=== PATIENT | female | born 1995 | race American Indian/Alaskan Native ===

== ENCOUNTER 2018-10-03 09:48 | Emergency (ER) | payer MEDICAID, OTHER ==
[2018-10-03 09:56] VITALS: BP 115/61
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
--- NOTE | 2018-10-03 14:12 | Cat Scan Report ---
PROCEDURE: CT HEAD/BRAIN WO CON TECHNIQUE: Spiral imaging of the brain was obtained without IV contrast administration. HISTORY: headache/lac COMPARISONS: None FINDINGS: Brain: Brain density appears normal. No evidence of intracranial hemorrhage. No parenchymal hemorr aimee, mass lesions or mass effect are seen. No abnormal extra-axial fluid collects or masses are see n. Ventricles: Ventricles are normal size and are midline. Bone Windows: No evidence of skull fracture. Paranasal sinuses: Minimal patchy mucosal disease seen. The ethmoid air cells. Visualized paranasal s inuses otherwise are clear.. Mastoid air cells: Clear. IMPRESSION: Negative unenhanced CT scan of the brain. This document is electronically signed by Wilmar Acuña MD., October 03 2018 02:10:09 PM ET
== END 2018-10-03 14:59 | disposition home or self-care (01) ==
LOC: ED 09:48
DX: O9A.212 Injury, poisoning and certain other consequences of external causes complicating pregnancy, second trimester (principal); S01.01XA Laceration without foreign body of scalp, initial encounter; Z3A.27 27 weeks gestation of pregnancy; W19.XXXA Unspecified fall, initial encounter; Y93.89 Activity, other specified; Y92.019 Unspecified place in single-family (private) house as the place of occurrence of the external cause; Y99.8 Other external cause status
CPT/HCPCS: 36415; 70450; 76815; 81001; 85025; 85384; 86850; 86900; 86901; 99283; J7120

== ENCOUNTER 2018-10-03 14:57 | Outpatient (CLI) | payer MEDICAID ==
[2018-10-03 15:22] VITALS: BP 97/54
[2018-10-03] MEDS ORDERED: LACTATED RINGERS 1,000 ML IV ONE (16:00)
[2018-10-03 16:37] LABS: Bacteria,Urine 3+ /HPF (Negative); Bilirubin,Urine NEG (Negative); Blood,Urine NEG (Negative); Color,Urine Yellow (Yellow); Mucus,Urine FEW /HPF; Protein,Urine <15 mg/dL mg/dL (Negative)
--- NOTE | 2018-10-03 17:42 | Ultrasound Report ---
PROCEDURE: US OB LIMITED TECHNIQUE: Limited OB ultrasound was performed. Spectral Doppler ultrasound evaluation of the left o vary was performed. HISTORY: abdominal pain; r/o placenta abruption COMPARISONS: None. FINDINGS: A single live intrauterine fetus is present in cephalic presentation with a heart rate of 152 bpm. Th e placenta is grade 1 and anterior in location. No evidence of placenta previa. No evidence of placen stephanie abruption. The left maternal ovary was visualized and demonstrates normal arterial blood flow measuring 2.2 x 1. 2 x 1.9 cm. A complex structure is seen in the left ovary measuring 1.2 x 1.0 x 1.1 cm likely represe nting a degenerating corpus luteal cyst. IMPRESSION: No evidence of placental abruption. This document is electronically signed by Elli Goss., October 03 2018 05:39:51 PM ET
[2018-10-03 18:11] LABS: Basophils % (Auto) 0.3 % (0.0-1.8); Eosinophils % (Auto) 0.3 % (0.0-4.3); Hematocrit 25.8 % (30.3-42.9); Hemoglobin 8.6 gm/dl (10.1-14.3); Lymphocytes % (Auto) 10.6 % (13.4-35.0); Mean Corpuscular HGB Conc 33 % (30-34); Mean Corpuscular Volume 90 fl (79-97); Monocytes % (Auto) 10.6 % (0.0-7.3); Platelet Count 173 K/mm3 (140-440); Red Blood Count 2.88 M/mm3 (3.65-5.03); Red Cell Distribution Width 12.9 % (13.2-15.2)
== END 2018-10-03 20:11 | disposition home or self-care (01) ==
LOC: TRG 14:57
PROVIDERS: ATTEND Obstetrics & Gynecology
DX: O47.02 False labor before 37 completed weeks of gestation, second trimester (principal); Z3A.26 26 weeks gestation of pregnancy
CPT/HCPCS: 36415; 76815; 81001; 85025; 85384; 86850; 86900; 86901; J7120

== ENCOUNTER 2019-08-03 13:24 | Emergency (ER) | payer MEDICAID, OTHER ==
--- NOTE | 2019-08-03 14:11 | Event Note ---
ED Screening Note Date of service: 08/03/19 Time: 14:11 ED Screening Note: 23 y o f presents with bartholin cyst This initial assessment/diagnostic orders/clinical plan/treatment(s) is/are subject to change based on patients health status, clinical progression and re- assessment by fellow clinical providers in the ED. Further treatment and workup at subsequent clinical providers discretion. Patient/guardian urged not to elope from the ED as their condition may be serious if not clinically assessed and managed. Initial orders include: acc eval ID
[2019-08-03] MEDS ORDERED: LIDOCAINE (2%) 20 MG/1 ML VIAL 20 ML MDV INFILTRATI ONE (17:17)
--- NOTE | 2019-08-03 18:28 | Emergency Department Report ---
Abscess Boil HPI - HPI Chief Complaint: Urogenital-Female Stated Complaint: BARTHOLIN CYST SWELLING Time Seen by Provider: 08/03/19 15:57 Duration: 1 Day Location: Other (right labia majora) Severity: Severe History: Yes Pain, No Fever, No Purulent Drainage, No Numbness, No Foreign Body, No Previous History, No Insect Bite HPI: This is a 23-year-old female nontoxic, well nourished in appearance, no acute signs of distress presents to the ED with c/o of redness and pain to right labia majora. Patient denies any pus or drainage. Patient denies any fever, chills, nausea, vomiting, chest pain, shortness of breath, headache or stiff neck. Patient denies any allergies or significant past medical history. Home Medications: Previous Rx's Medication Instructions Recorded Last Taken Type Acetaminophen 500 mg PO Q8H PRN #20 tablet 10/03/18 Unknown Rx Acetaminophen/Codeine [Tylenol 1 tab PO Q6H PRN #12 tab 08/03/19 Unknown Rx /Codeine # 3 tab] Sulfamethoxazole/Trimethoprim 1 each PO BID #14 tablet 08/03/19 Unknown Rx [Bactrim DS TAB] Allergies/Adverse Reactions: Allergies Allergy/AdvReac Type Severity Reaction Status Date / Time No Known Allergies Allergy Unverified 10/03/18 09:54 ED Review of Systems ROS: Stated complaint: BARTHOLIN CYST SWELLING Other details as noted in HPI Constitutional: denies: chills, fever Eyes: denies: eye pain, eye discharge, vision change ENT: denies: ear pain, throat pain Respiratory: denies: cough, shortness of breath, wheezing Cardiovascular: denies: chest pain, palpitations Endocrine: no symptoms reported Gastrointestinal: denies: abdominal pain, nausea, diarrhea Genitourinary: denies: urgency, dysuria, discharge Musculoskeletal: denies: back pain, joint swelling, arthralgia Skin: denies: rash, lesions Neurological: denies: headache, weakness, paresthesias Psychiatric: denies: anxiety, depression Hematological/Lymphatic: denies: easy bleeding, easy bruising ED Past Medical Hx - Past Medical History Previous Medical History?: Yes - Surgical History Past Surgical History?: Yes - Social History Smoking Status: Never Smoker Substance Use Type: None - Medications Home Medications: Home Medications Medication Instructions Recorded Confirmed Last Taken Type Acetaminophen 500 mg PO Q8H PRN #20 tablet 10/03/18 Unknown Rx Acetaminophen/Codeine [Tylenol 1 tab PO Q6H PRN #12 tab 08/03/19 Unknown Rx /Codeine # 3 tab] Sulfamethoxazole/Trimethoprim 1 each PO BID #14 tablet 08/03/19 Unknown Rx [Bactrim DS TAB] ED Abscess Boil Physical Exam - Exam General: Vital signs noted. No distress. Alert and acting appropriately. Size: 3 cm Exam: Yes Tenderness, Yes Fluctuance, Yes Normal Neurologic Exam, Yes Normal Circulation, No Surrounding Cellulites/Erythema, No Lymphangitis, No C repitation, No Heart Murmur I & D Note - I & D Note I & D Note: Under sterile field, I used Betadine to cleanse the area. I then used 2% lidocaine plain with 25-gauge 5/8 needle to inject area for anesthetic purposes. Total volume injected 6 mL. I then used an 11 blade to make a 1 cm incision. About 2 mL's of purulent drainage has been noted. I then used a hemostat to break the abscess formation. I then used sterile 0.9% normal saline flush to flush the wound with total volume of 40 mL used. I then put a 1 inch iodoform packing to the incision. A sterile 4 x 4 with tape has been applied as dressing. Bleeding is under control. Patient tolerated the procedure well with no signs of distress noted. Henrique Morrison RN present during the exam and whole procedure. ED Course Vital Signs 08/03/19 13:45 Temperature 98.9 F Pulse Rate 110 H Respiratory 16 Rate Blood Pressure 128/75 O2 Sat by Pulse 98 Oximetry - Reevaluation(s) Reevaluation #1: 08/03/19 18:24 Patient is speaking in full sentences with no signs of distress noted. Critical care attestation.: If time is entered above; I have spent that time in minutes in the direct care of this critically ill patient, excluding procedure time. ED Medical Decision Making - Medical Decision Making This is a 23-year-old female that presents with right labia majora abscess. Patient is stable and was examined by me. This is incision and drainage and has been performed and patient tolerated well. A sterile dressing has been applied. Patient was educated on proper wound care. Patient is discharged with Bactrim and Tylenol with codeine and was instructed not to operate any machinery while taking Tylenol with codeine due to drowsiness. Patient was instructed to return in 2 days for packing removal. Patient was instructed to refer to Follow-up with a primary care doctor in 3-5 days or if symptoms worsen and continue return to emergency room as soon as possible. At time of discharge, the patient does not seem toxic or ill in appearance. No acute signs of distress noted. Patient agrees to discharge treatment plan of care. No further questions noted by the patient. ED Disposition Clinical Impression: Bartholin's gland abscess, Encounter for incision and drainage procedure Disposition: TO HOME OR SELFCARE Is pt being admited?: No Does the pt Need Aspirin: No Condition: Stable Instructions: Abscess (ED), Incision and Drainage (ED), Acetaminophen/Codeine (By mouth) Additional Instructions: Follow-up with a primary care doctor in 3-5 days or if symptoms worsen and continue return to emergency room as soon as possible. Do not operate any machinery while taking Tylenol with codeine as this may cause drowsiness. Return in 2 days for packing removal. Prescriptions: Sulfamethoxazole/Trimethoprim [Bactrim DS TAB] 1 each PO BID #14 tablet Acetaminophen/Codeine [Tylenol /Codeine # 3 tab] 1 tab PO Q6H PRN #12 tab PRN Reason: Pain , Severe (7-10) Referrals: PRIMARY MD GILDA [Primary Care Provider] - 3-5 Days MIGUEL RODRIGUES MD [Staff Physician] - 3-5 Days [facility] [Outside] - 3-5 Days Forms: Work/School Release Form(ED)
[2019-08-03 18:38] VITALS: BP 124/71
== END 2019-08-03 18:37 | disposition home or self-care (01) ==
LOC: ED 13:24
DX: N75.1 Abscess of Bartholin's gland (principal); Z48.817 Encounter for surgical aftercare following surgery on the skin and subcutaneous tissue; Z79.899 Other long term (current) drug therapy

== ENCOUNTER 2020-10-08 16:20 | Emergency (ER) | payer MEDICAID ==
[2020-10-08] MEDS ORDERED: ACETAMINOPHEN 325 MG TAB PO ONE (17:42)
[2020-10-08 17:43] VITALS: BP 112/64
[2020-10-08] MEDS ORDERED: LIDOCAINE (1%) 10 MG/1 ML VIAL 20 ML MDV INFILTRATI ONE (18:27)
[2020-10-08 19:22] LABS: Basophils % (Auto) 0.3 % (0.0-1.8); Eosinophils % (Auto) 0.2 % (0.0-4.3); Hematocrit 33.2 % (30.3-42.9); Hemoglobin 10.8 gm/dl (10.1-14.3); Lymphocytes # (Auto) 0.7 K/mm3 (1.2-5.4); Lymphocytes % (Auto) 19.3 % (13.4-35.0); Mean Corpuscular HGB Conc 32 % (30-34); Mean Corpuscular Volume 83 fl (79-97); Monocytes # (Auto) 0.4 K/mm3 (0.0-0.8); Monocytes % (Auto) 10.8 % (0.0-7.3); Platelet Count 174 K/mm3 (140-440); Red Blood Count 4.01 M/mm3 (3.65-5.03); Red Cell Distribution Width 16.5 % (13.2-15.2)
[2020-10-08 19:36] LABS: Alanine Aminotransferase 11 units/L (7-56); Albumin 4.4 g/dL (3.9-5); Blood Urea Nitrogen 9 mg/dL (7-17); Calcium 8.5 mg/dL (8.4-10.2); Hemolysis Index 1
[2020-10-08 19:44] LABS: BUN/Creatinine Ratio 13
[2020-10-08] MEDS ORDERED: CLINDAMYCIN 150 MG CAP PO ONE (20:56)
--- NOTE | 2020-10-08 20:56 | Emergency Department Report ---
- General Chief complaint: Skin/Abscess/Foreign Body Stated complaint: ABCESS/FEVER Time Seen by Provider: 10/08/20 18:11 Source: patient Mode of arrival: Ambulatory Limitations: No Limitations - History of Present Illness Initial comments: 25-year-old female with no significant past medical history presents to the ER today with complaints of a Bartholin's abscess to right side of vaginal area. Patient states that it started about 2 days ago and has been getting worse. She states that she is also been having intermittent subjective fever, generalized fatigue and decreased appetite. She states that she has had similar abscesses in the past which required I&D. She denies any history of diabetes, MRSA or any other immunocompromise disease. MD complaint: abscess/boil -: Gradual, days(s) (2) - Related Data Previous Rx's Medication Instructions Recorded Last Taken Type Acetaminophen [Acetaminophen 8 650 mg PO Q8HR PRN #20 tablet.er 10/08/20 Unknown Rx Hour] Clindamycin [Clindamycin CAP] 300 mg PO Q6H #40 cap 10/08/20 Unknown Rx Allergies Allergy/AdvReac Type Severity Reaction Status Date / Time No Known Allergies Allergy Verified 10/08/20 17:38 Abscess Boil HPI - HPI Chief Complaint: Skin/Abscess/Foreign Body Stated Complaint: ABCESS/FEVER Time Seen by Provider: 10/08/20 18:11 Home Medications: Previous Rx's Medication Instructions Recorded Last Taken Type Acetaminophen [Acetaminophen 8 650 mg PO Q8HR PRN #20 tablet.er 10/08/20 Unknown Rx Hour] Clindamycin [Clindamycin CAP] 300 mg PO Q6H #40 cap 10/08/20 Unknown Rx Allergies/Adverse Reactions: Allergies Allergy/AdvReac Type Severity Reaction Status Date / Time No Known Allergies Allergy Verified 10/08/20 17:38 ED Review of Systems ROS: Stated complaint: ABCESS/FEVER Other details as noted in HPI Comment: All other systems reviewed and negative Constitutional: denies: chills, fever Eyes: denies: eye pain, eye discharge, vision change ENT: denies: ear pain, throat pain Respiratory: denies: cough, shortness of breath, wheezing Cardiovascular: denies: chest pain, palpitations Endocrine: no symptoms reported Gastrointestinal: denies: abdominal pain, nausea, vomiting, diarrhea, constipation, hematemesis, melena, hematochezia Genitourinary: denies: urgency, dysuria, discharge Skin: other (abscess- vaginal ) Neurological: denies: headache, weakness, paresthesias Psychiatric: denies: anxiety, depression, auditory hallucinations, visual hallucinations, homicidal thoughts, suicidal thoughts Hematological/Lymphatic: denies: easy bleeding ED Past Medical Hx - Past Medical History Hx Hypertension: No Hx Diabetes: No Hx Deep Vein Thrombosis: No Hx Renal Disease: No Hx Sickle Cell Disease: No Hx Seizures: No Hx Asthma: No Hx HIV: No - Surgical History Past Surgical History?: No - Social History Smoking Status: Never Smoker Substance Use Type: None - Medications Home Medications: Home Medications Medication Instructions Recorded Confirmed Last Taken Type Acetaminophen [Acetaminophen 8 650 mg PO Q8HR PRN #20 tablet.er 10/08/20 Unknown Rx Hour] Clindamycin [Clindamycin CAP] 300 mg PO Q6H #40 cap 10/08/20 Unknown Rx ED Physical Exam - General Limitations: No Limitations General appearance: alert, in no apparent distress - Head Head exam: Present: atraumatic, normocephalic, normal inspection - Eye Eye exam: Present: normal appearance, PERRL, EOMI Pupils: Present: normal accommodation - Neck Neck exam: Present: normal inspection, full ROM. Absent: meningismus - Respiratory Respiratory exam: Present: normal lung sounds bilaterally. Absent: respiratory distress - Cardiovascular Cardiovascular Exam: Present: regular rate, normal rhythm, normal heart sounds - GI/Abdominal GI/Abdominal exam: Present: soft. Absent: distended, tenderness, guarding, rebound - External exam: Present: other (Bartholin's abscess noted to right vaginal area without any associated significant cellulitis no drainage noted it is severely tender to palpate) - Neurological Exam Neurological exam: Present: alert, oriented X3, CN II-XII intact, normal gait - Psychiatric Psychiatric exam: Present: normal affect, normal mood - Skin Skin exam: Present: intact ED Course Vital Signs 10/08/20 17:42 Temperature 101.0 F H Pulse Rate 81 Respiratory 20 Rate Blood Pressure 112/64 O2 Sat by Pulse 98 Oximetry - I & D Right Vagina Type of Procedure: Simple Site: bartholin gland (right) Blade Size: 11 I & D Procedure: betadine prep, no gauze wick placed (Use words catheter) Progress: Used lidocaine 2% Anesthesia achieved. Patient tolerated procedure well without any complication. ED Medical Decision Making - Lab Data Result diagrams: 10/08/20 18:42 10/08/20 18:42 - Medical Decision Making 25-year-old female with no significant past medical history presents to the ER today with complaints of a Bartholin's abscess to right side of vaginal area. Patient states that it started about 2 days ago and has been getting worse. She states that she is also been having intermittent subjective fever, generalized fatigue and decreased appetite. She states that she has had similar abscesses in the past which required I&D. She denies any history of diabetes, MRSA or any other immunocompromise disease. 1004pm: Bartholins abscess drained by me, see procedure note for details. Patient CBC/CMP wnl. Her serum HCG was positive and Quant HCG was 11.08. Patient was not aware she was . She had a nl MC in august. 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 She denies any abd or pelvic pain. She is Rh positive. Since patient has no abd/pelvic pain and her Quant is only 11.08, I do not see in inidication for doingv an US at this time. Discussed lab results with patient. Recommend f/u with OBGYN in 2-3 days. Discussed wound care with patient. She was febrile on arrival but repeat VS show improved temp (98.4) after meds. Her remaining VS stable. Overall patient is well appearing, not toxic, no ill appearing and no in distress at this time. Patient was stable at time of d/c. Critical care attestation.: If time is entered above; I have spent that time in minutes in the direct care of this critically ill patient, excluding procedure time. ED Disposition Clinical Impression: Bartholin's gland abscess, state, incidental, Threatened miscarriage in early Disposition: DC-01 TO HOME OR SELFCARE Is pt being admited?: No Does the pt Need Aspirin: No Condition: Stable Instructions: Threatened Miscarriage, Skin Abscess, [id number], Bartholin's Cyst, [id number] Additional Instructions: Keep area clean with soap and water. You can follow-up with [facility] or return in 2 days to have the vital signs catheter removed. You will also need to follow- up with your [facility] for further follow-up on your . I recommend repeat quant HCG in about 2 to 3 days. Take the clindamycin as prescribed. Take the Tylenol as needed for pain. Return to the ER if your symptoms changes or worsens in any way. Prescriptions: Acetaminophen [Acetaminophen 8 Hour] 650 mg PO Q8HR PRN #20 tablet.er PRN Reason: Pain Clindamycin [Clindamycin CAP] 300 mg PO Q6H #40 cap Referrals: ANJEL DICKSON [Other] - 2-3 Days [facility] [Provider Group] - 2-3 Days [facility] [Provider Group] - 2-3 Days Forms: Work/School Release Form(ED) Time of Disposition: 22:00
[2020-10-08] MEDS ORDERED: MORPHINE 2 MG/1 ML INJ IM ONE (21:01)
[2020-10-08] MEDS ORDERED: ONDANSETRON 4 MG ODT TAB PO ONE (21:01)
== END 2020-10-08 22:23 | disposition home or self-care (01) ==
LOC: ED 16:20
DX: O23.591 Infection of other part of genital tract in pregnancy, first trimester (principal); O20.9 Hemorrhage in early pregnancy, unspecified; Z79.899 Other long term (current) drug therapy; Z3A.01 Less than 8 weeks gestation of pregnancy
CPT/HCPCS: 36415; 56420; 80053; 84702; 84703; 85025; 85461; 86850; 86900; 86901; 96372; 99283; J2270; Q0162

== ENCOUNTER 2020-10-11 13:14 | Emergency (ER) | payer MEDICAID ==
[2020-10-11 14:11] VITALS: BP 103/71
--- NOTE | 2020-10-11 14:33 | Emergency Department Report ---
ED General Adult HPI - General Chief complaint: Urogenital-Female Stated complaint: REMOVAL OF PACKING/RETEST FOR MISCARRIAGE Time Seen by Provider: 10/11/20 14:30 Source: patient Mode of arrival: Ambulatory Limitations: No Limitations - History of Present Illness Initial comments: 25-year-old female presents to the ER today for removal of her word's catheter after she had a Bartholin abscess drained on October 08. She is also here for repeat quant hCG. Patient states that since the drainage of a Bartholin cyst, she did have some soreness but no significant pain like she did when he first started. She has been compliant with taking antibiotics. She is not sure if there is any drainage as she is still having some vaginal bleeding. She denies any fever since she was last seen. Patient was found to be on her October 08 visit. It was a incidental finding as patient was not aware she was . Her quant at the time measured 11.08. Patient was instructed to follow-up with [facility] to continue monitoring her quant but she has not been able to find OB. Patient states that she still having vaginal bleeding, not any heavier than when she was seen 3 days ago. She denies any pelvic pain or abdominal pain at this time. She denies any abnormal vaginal discharge. Complaint: Word's catheter removal/ Recheck HCG -: days(s) (3) - Related Data Previous Rx's Medication Instructions Recorded Last Taken Type Acetaminophen [Acetaminophen 8 650 mg PO Q8HR PRN #20 tablet.er 10/08/20 Unknown Rx Hour] Clindamycin [Clindamycin CAP] 300 mg PO Q6H #40 cap 10/08/20 Unknown Rx Allergies Allergy/AdvReac Type Severity Reaction Status Date / Time No Known Allergies Allergy Verified 10/08/20 17:38 ED Review of Systems ROS: Stated complaint: REMOVAL OF PACKING/RETEST FOR MISCARRIAGE Other details as noted in HPI Comment: All other systems reviewed and negative Respiratory: denies: cough, shortness of breath, wheezing Cardiovascular: denies: chest pain, palpitations Gastrointestinal: denies: abdominal pain, nausea, vomiting, diarrhea, constipation, hematemesis, melena, hematochezia Genitourinary: other (Abnormal vaginal bleeding). denies: urgency, dysuria, frequency, hematuria, discharge Musculoskeletal: denies: back pain, joint swelling, arthralgia Skin: other (Abscess) Neurological: denies: headache, weakness, paresthesias, confusion, abnormal gait, vertigo Psychiatric: denies: anxiety, depression Hematological/Lymphatic: denies: easy bleeding, easy bruising ED Past Medical Hx - Past Medical History Hx Hypertension: No Hx Diabetes: No Hx Deep Vein Thrombosis: No Hx Renal Disease: No Hx Sickle Cell Disease: No Hx Seizures: No Hx Asthma: No Hx HIV: No - Social History Smoking Status: Never Smoker Substance Use Type: None - Medications Home Medications: Home Medications Medication Instructions Recorded Confirmed Last Taken Type Acetaminophen [Acetaminophen 8 650 mg PO Q8HR PRN #20 tablet.er 10/08/20 Unknown Rx Hour] Clindamycin [Clindamycin CAP] 300 mg PO Q6H #40 cap 10/08/20 Unknown Rx ED Physical Exam - General Limitations: No Limitations General appearance: alert, in no apparent distress - Head Head exam: Present: atraumatic, normocephalic, normal inspection - Respiratory Respiratory exam: Present: normal lung sounds bilaterally. Absent: respiratory distress - Cardiovascular Cardiovascular Exam: Present: regular rate, normal rhythm, normal heart sounds - GI/Abdominal GI/Abdominal exam: Present: soft. Absent: distended, tenderness - External exam: Present: other (Words catheter noted right vaginal area; it was removed by me without any complication. no further pus drainage noted. Abscess overall healling ) - Neurological Exam Neurological exam: Present: alert, oriented X3, CN II-XII intact, normal gait - Psychiatric Psychiatric exam: Present: normal affect, normal mood - Skin Skin exam: Present: intact ED Course Vital Signs 10/11/20 14:10 Temperature 98.4 F Pulse Rate 59 L Respiratory 16 Rate Blood Pressure 103/71 O2 Sat by Pulse 100 Oximetry ED Medical Decision Making - Medical Decision Making Words catheter removed successfully without any complication. Bartholin's abscess healing well. Patient instructed to continue taking and finishing antibiotics. Quant hCG shows decreased from 11.08 to 3.21 which indicates that patient is likely having or has had a miscarriage. Discussed results with patient. Recommend that she still follows up with [facility] next week. Patient expressed understanding of instructions and agree with plan. Patient overall well-appearing, not toxic and not in any acute distress. Vital signs are stable. Patient was stable at time of discharge Critical care attestation.: If time is entered above; I have spent that time in minutes in the direct care of this critically ill patient, excluding procedure time. ED Disposition Clinical Impression: Wound check, abscess, Miscarriage Disposition: DC- TO HOME OR SELFCARE Is pt being admited?: No Does the pt Need Aspirin: No Condition: Stable Instructions: Miscarriage, [id number], Wound Care, Adult Additional Instructions: Keep the area clean daily with soap and water. Continue and complete all antibiotics. Based on the fact that your quantitative hCG is dropping, appears that you likely having a miscarriage. Follow-up with your [facility] next week. Return to the ER if anything changes or worsens in any way. Referrals: [facility] [Provider Group] - 3-5 Days Forms: Work/School Release Form(ED) Time of Disposition: 16:22
== END 2020-10-11 17:30 | disposition home or self-care (01) ==
LOC: ED 13:14
DX: O03.9 Complete or unspecified spontaneous abortion without complication (principal); Z48.01 Encounter for change or removal of surgical wound dressing; Z79.2 Long term (current) use of antibiotics; Z79.899 Other long term (current) drug therapy
CPT/HCPCS: 36415; 84702

== ENCOUNTER 2020-11-10 17:08 | Emergency (ER) | payer MEDICAID ==
[2020-11-10] MEDS ORDERED: HYDROcodone/ACETAMINOPHEN 5-325 MG TAB PO ONE (20:25)
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
[2020-11-10] MEDS ORDERED: LIDOCAINE (1%) 10 MG/1 ML VIAL 20 ML MDV INFILTRATI ONE (20:50)
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
[2020-11-10 22:33] VITALS: BP 116/83
== END 2020-11-10 22:30 | disposition home or self-care (01) ==
LOC: ED 17:08
DX: S51.811A Laceration without foreign body of right forearm, initial encounter (principal); Z79.1 Long term (current) use of non-steroidal anti-inflammatories (NSAID); Z79.2 Long term (current) use of antibiotics; Z79.899 Other long term (current) drug therapy; W26.0XXA Contact with knife, initial encounter; Y93.89 Activity, other specified; Y92.89 Other specified places as the place of occurrence of the external cause; Y99.8 Other external cause status

== ENCOUNTER 2020-12-21 13:39 | Emergency (ER) | payer MEDICAID ==
--- NOTE | 2020-12-21 15:06 | Event Note ---
ED Screening Note Date of service: 12/21/20 Time: 15:04 ED Screening Note: Patient is a A1 25-year-old -[place] female with no past medical history under who suspect that she may be presents to the ED with complaint of acute onset persistent intermittent diffuse lower abdominal pain and vaginal bleeding for the last 2 days. Patient states that the bleeding initially was mild but became heavier in the last 8 hours. Patient states that she had positive home test 1 week ago and is scared that she may be having a miscarriage again having had 1 about 2 months ago. Patient denies dysuria, urinary frequency and urgency, chest pain, shortness of breath, diarrhea, vaginal discharge or low back pain, fever and chills. This initial assessment/diagnostic orders/clinical plan/treatment(s) is/are subject to change based on patients health status, clinical progression and re- assessment by fellow clinical providers in the ED. Further treatment and workup at subsequent clinical providers discretion. Patient/guardian urged not to elope from the ED as their condition may be serious if not clinically assessed and managed. Initial orders include: CBC, CMP, hCG quant, UA
[2020-12-21 15:32] LABS: Basophils % (Auto) 0.4 % (0.0-1.8); Eosinophils # (Auto) 0.1 K/mm3 (0.0-0.4); Eosinophils % (Auto) 2.1 % (0.0-4.3); Hematocrit 33.3 % (30.3-42.9); Hemoglobin 10.6 gm/dl (10.1-14.3); Lymphocytes # (Auto) 1.5 K/mm3 (1.2-5.4); Lymphocytes % (Auto) 29.8 % (13.4-35.0); Mean Corpuscular HGB Conc 32 % (30-34); Mean Corpuscular Volume 85 fl (79-97); Monocytes # (Auto) 0.5 K/mm3 (0.0-0.8); Monocytes % (Auto) 10.7 % (0.0-7.3); Platelet Count 213 K/mm3 (140-440); Red Blood Count 3.94 M/mm3 (3.65-5.03); Red Cell Distribution Width 16.1 % (13.2-15.2)
--- NOTE | 2020-12-21 15:48 | Emergency Department Report ---
ED Female HPI - General Chief complaint: Vaginal Bleeding Stated complaint: VAG BLEEDING Time Seen by Provider: 12/21/20 15:10 Source: patient Mode of arrival: Ambulatory Limitations: No Limitations - History of Present Illness Initial comments: 5-year-old female presents to the ER today wanting to know whether she is having a miscarriage or if the bleeding that she is having is related to her menstrual cycle. Patient states that she took a home test last week because she was feeling nauseous and it was positive. She states that she was scheduled to start her menstrual cycle yesterday which she did. And the bleeding that she started yesterday was typical of her menstrual cycle. She has not taken another test since taking the first 1. She reports mild abdominal cramping which is typical during her first couple days of her menstrual cycle. She is not currently on any control. She denies any abnormal vaginal discharge. She denies any nausea, vomiting, diarrhea, fever or chills. She states that she had a miscarriage back in October 2020. She is AB 1 Complaint: vaginal bleeding -: days(s) (1) - Related Data Previous Rx's Medication Instructions Recorded Last Taken Type Acetaminophen [Acetaminophen 8 650 mg PO Q8HR PRN #20 tablet.er 10/08/20 Unknown Rx Hour] Clindamycin [Clindamycin CAP] 300 mg PO Q6H #40 cap 10/08/20 Unknown Rx Ibuprofen [Motrin 600 MG tab] 600 mg PO Q8H PRN #14 tablet 11/10/20 Unknown Rx Neomycin/Bacitracin/Polymyxinb 1 applicatio TP BID #1 oint...g. 11/10/20 Unknown Rx [Triple Antibiotic Ointment] Allergies Allergy/AdvReac Type Severity Reaction Status Date / Time No Known Allergies Allergy Verified 12/21/20 15:10 ED Review of Systems ROS: Stated complaint: VAG BLEEDING Other details as noted in HPI Comment: All other systems reviewed and negative Constitutional: denies: chills, fever Eyes: denies: eye pain, eye discharge, vision change ENT: denies: ear pain, throat pain Respiratory: denies: cough, shortness of breath, SOB with exertion, SOB at rest, wheezing Cardiovascular: denies: chest pain, palpitations Endocrine: no symptoms reported Gastrointestinal: abdominal pain, nausea. denies: vomiting, diarrhea, constipation, hematemesis, melena, hematochezia Genitourinary: abnormal menses. denies: urgency, dysuria, frequency, hematuria, discharge, dyspareunia Musculoskeletal: denies: back pain, joint swelling, arthralgia Skin: denies: rash, lesions Neurological: denies: headache, weakness, paresthesias Psychiatric: denies: anxiety, depression, auditory hallucinations, visual hallucinations, homicidal thoughts, suicidal thoughts Hematological/Lymphatic: denies: easy bleeding, easy bruising ED Past Medical Hx - Past Medical History Previous Medical History?: No Hx Hypertension: No Hx Diabetes: No Hx Deep Vein Thrombosis: No Hx Renal Disease: No Hx Sickle Cell Disease: No Hx Seizures: No Hx Asthma: No Hx HIV: No - Surgical History Past Surgical History?: No - Social History Smoking Status: Never Smoker Substance Use Type: Alcohol - Medications Home Medications: Home Medications Medication Instructions Recorded Confirmed Last Taken Type Acetaminophen [Acetaminophen 8 650 mg PO Q8HR PRN #20 tablet.er 10/08/20 Unknown Rx Hour] Clindamycin [Clindamycin CAP] 300 mg PO Q6H #40 cap 10/08/20 Unknown Rx Ibuprofen [Motrin 600 MG tab] 600 mg PO Q8H PRN #14 tablet 11/10/20 Unknown Rx Neomycin/Bacitracin/Polymyxinb 1 applicatio TP BID #1 oint...g. 11/10/20 Unknown Rx [Triple Antibiotic Ointment] ED Physical Exam - General Limitations: No Limitations General appearance: alert, in no apparent distress - Head Head exam: Present: atraumatic, normocephalic, normal inspection - Eye Eye exam: Present: normal appearance, PERRL, EOMI Pupils: Present: normal accommodation - ENT ENT exam: Present: normal exam, mucous membranes moist - Neck Neck exam: Present: normal inspection, full ROM - Respiratory Respiratory exam: Present: normal lung sounds bilaterally. Absent: respiratory distress, wheezes, rales, rhonchi - Cardiovascular Cardiovascular Exam: Present: regular rate, normal rhythm, normal heart sounds - GI/Abdominal GI/Abdominal exam: Present: soft. Absent: distended, tenderness, guarding, rebound - Neurological Exam Neurological exam: Present: alert, oriented X3, CN II-XII intact, normal gait - Psychiatric Psychiatric exam: Present: normal affect, normal mood - Skin Skin exam: Present: intact ED Course Vital Signs 12/21/20 12/21/20 14:48 15:11 Temperature 99.1 F Pulse Rate 61 Respiratory 16 20 Rate Blood Pressure 111/70 O2 Sat by Pulse 100 Oximetry ED Medical Decision Making - Lab Data Result diagrams: 12/21/20 15:14 12/21/20 15:14 - Medical Decision Making Lab results reviewed --CBC and CMP unremarkable. Quant hCG is positive at 588. OB transvaginal ultrasound ordered. 1815: Ultrasound still has not been done and wants to leave. Nurse states that she call ultrasound area several times without being able to get a hold of anyone. I tried calling myself but without success. ED RhoGam also pending. I apologized to patient about the weight but informed her that if she needs to leave she will have to sign out AMA. Patient agreed to sign out AMA. AMA note: [Alexis Booker] Has decided to leave our facility AGAINST MEDICAL ADVICE. I have assessed the patient's ability to make informed decision and it is my opinion at this time that the patient has the medical decision capacity to comprehend information regarding current medical condition and appreciates the impact of the disease or condition and the consequences of various options for treatment including foregoing treatment. The patient possesses the ability to evaluate all treatment options, compared to risk and benefits of each option, communicate choice in a consistent manner over time and is able to make rational choices. I have explained to the patient further testing, treatment and evaluation I would like to perform during the current emergency department visit as well as any possible alternatives that could be accomplished in a timely manner. I have outlined the possible risk of foregoing any or all of these interventions and the patient understands and acknowledges that the decision to leave may result in undesirable consequences such as , permanent disability and/or loss of current lifestyle. Even though leaving AMA is not ideal, I have instructed the patient to follow any discharge instructions given take any medications prescribed and resume care as soon as possible with another provider. Additionally, we clearly stated that the patient is welcome to return at any time to continue at our facility. Critical care attestation.: If time is entered above; I have spent that time in minutes in the direct care of this critically ill patient, excluding procedure time. ED Disposition Clinical Impression: Threatened miscarriage Disposition: DC-01 TO HOME OR SELFCARE Is pt being admited?: No Does the pt Need Aspirin: No Condition: Stable Instructions: Threatened Miscarriage Referrals: [facility] [Provider Group] - 2-3 Days Forms: AMA Form Time of Disposition: 18:13
[2020-12-21 15:49] LABS: Alanine Aminotransferase 9 units/L (7-56); Albumin 4.7 g/dL (3.9-5); Blood Urea Nitrogen 13 mg/dL (7-17); Hemolysis Index 4
[2020-12-21 15:50] VITALS: BP 111/70
[2020-12-21 15:53] LABS: BUN/Creatinine Ratio 22
[2020-12-21 16:36] LABS: Bacteria,Urine 1+ /HPF (Negative); Bilirubin,Urine NEG (Negative); Blood,Urine LG (Negative); Color,Urine Yellow (Yellow); Mucus,Urine FEW /HPF
[2020-12-21 16:38] LABS: RBC,Urine > 182.0 /HPF (0.0-6.0)
== END 2020-12-21 18:16 | disposition home or self-care (01) ==
LOC: ED 13:39
DX: O20.0 Threatened abortion (principal); Z79.899 Other long term (current) drug therapy; Z3A.01 Less than 8 weeks gestation of pregnancy
CPT/HCPCS: 36415; 80053; 81001; 84702; 85025; 86900; 86901; 87086

== ENCOUNTER 2022-04-01 10:07 | Emergency (ER) | payer MEDICAID ==
[2022-04-01 11:25] VITALS: BP 114/71
[2022-04-01] MEDS ORDERED: oxyCODONE /ACETAMINOPHEN 5-325MG TAB PO ONE (16:17)
[2022-04-01] MEDS ORDERED: LIDOCAINE-MPF (1%) 10 MG/1 ML VIAL 5 ML INFILTRATI ONE (16:17)
--- NOTE | 2022-04-01 16:22 | Emergency Department Report ---
Abscess Boil HPI - HPI Chief Complaint: Skin/Abscess/Foreign Body Stated Complaint: BARTHOLIN CYST/RT SIDE Time Seen by Provider: 04/01/22 16:17 Duration: 2 Days Location: Other Severity: Mild History: Yes Pain, Yes Previous History, No Fever, No Purulent Drainage, No Numbness, No Foreign Body, No Insect Bite HPI: 26 yo comes to ER with a/c Barthol. cyst of right labial area. She states it keeps coming back. She has had I/D x 2 and had a wick placed "but it falls out.". She has not seen obgyn. no fever. no chills. no drainage. no back pain. no abnormal vag dc. ambulatory and non ill on arrival to ER. No life threat identified Home Medications: Previous Rx's Medication Instructions Recorded Last Taken Type Sulfamethoxazole/Trimethoprim 1 each PO BID #14 04/01/22 Unknown Rx [Bactrim DS TAB] Allergies/Adverse Reactions: Allergies Allergy/AdvReac Type Severity Reaction Status Date / Time No Known Allergies Allergy Verified 04/01/22 10:24 ED Review of Systems ROS: Stated complaint: BARTHOLIN CYST/RT SIDE Other details as noted in HPI Comment: All other systems reviewed and negative ED Past Medical Hx - Past Medical History Previous Medical History?: No Hx Hypertension: No Hx Diabetes: No Hx Deep Vein Thrombosis: No Hx Renal Disease: No Hx Sickle Cell Disease: No Hx Seizures: No Hx Asthma: No Hx HIV: No - Surgical History Past Surgical History?: Yes Additional Surgical History: Bartholin cyst - Social History Smoking Status: Never Smoker Substance Use Type: Alcohol - Medications Home Medications: Home Medications Medication Instructions Recorded Confirmed Last Taken Type Sulfamethoxazole/Trimethoprim 1 each PO BID #14 04/01/22 Unknown Rx [Bactrim DS TAB] ED Abscess Boil Physical Exam - Exam General: Vital signs noted. No distress. Alert and acting appropriately. Size: >5 cm Exam: Yes Tenderness, Yes Normal Neurologic Exam, Yes Normal Circulation, No Fluctuance, No Surrounding Cellulites/Erythema, No Lymphangitis, No Crepitation, No Heart Murmur I & D Note - I & D Note I & D Note: no I/D. Cyst is hard- no area to access for I/D ED Course Vital Signs 04/01/22 04/01/22 10:15 11:24 Temperature 99.7 F H 98.4 F Pulse Rate 88 98 H Respiratory 18 16 Rate Blood Pressure 118/79 Blood Pressure 114/71 [Right] O2 Sat by Pulse 97 100 Oximetry Critical care attestation.: If time is entered above; I have spent that time in minutes in the direct care of this critically ill patient, excluding procedure time. ED Medical Decision Making - Medical Decision Making Vital Signs 04/01/22 04/01/22 10:15 11:24 Temperature 99.7 F H 98.4 F Pulse Rate 88 98 H Respiratory 18 16 Rate Blood Pressure 118/79 Blood Pressure 114/71 [Right] O2 Sat by Pulse 97 100 Oximetry I've had a long discussion with pt regarding appropriate management of cyst. She was treated for pain while in ER. Pt dc home with d/c change plan of care including diet, meds, activity and follow up. She has been given referral to obgyn. On d/c exam she is ambulatory, taking po and in nad. - Differential Diagnosis a/c abscess/barthol. cyst ED Disposition Clinical Impression: Bartholin's gland infection Disposition: 01 HOME / SELF CARE / HOMELESS Is pt being admited?: No Does the pt Need Aspirin: No Condition: Stable Instructions: Bartholin's Cyst Additional Instructions: SOAK IN EPSOM SALTS AND WARM WATER MOTRIN OR TYLENOL FOR PAIN STAY WELL HYDRATED WITH WATER FOLLOW UP WITH OBGYN DONALD REFERRAL BELOW TELL THEM YOU HAVE RECURRENT BARTHOL. CYST ANTIBIOTIC ORDERED TODAY Prescriptions: Sulfamethoxazole/Trimethoprim [Bactrim DS TAB] 1 each PO BID #14 Referrals: JOSIE FORRESTER MD [Staff Physician] - 3-5 Days Forms: Work/School Release Form(ED) Time of Disposition: 16:19
== END 2022-04-01 17:20 | disposition home or self-care (01) ==
LOC: ED 10:07
DX: N75.1 Abscess of Bartholin's gland (principal); F10.20 Alcohol dependence, uncomplicated
CPT/HCPCS: 96372; 99283; J0696; J3490; 99282